=== PATIENT | female | born 1980 | race African-American/Black ===

== ENCOUNTER 2020-02-29 17:19 | Emergency (ER) | payer BC, OTHER ==
[~2020-02-29] VITALS: Ht 167.6 cm; Wt 90.1 kg
[2020-02-29 17:25] VITALS: BP 140/95
[2020-02-29] MEDS ORDERED: IV NORMAL SALINE 1,000ML 1,000 ML IV ONE (17:45)
--- NOTE | 2020-02-29 18:02 | PHYS DOC ---
General Adult EDM: Chief Complaint: HEADACHE HPI: HPI: Patient is a 39 year old female who presents with above hx and complaints of headache, body aches, fever was 100.3, pt sent to ED per employer to " get checked out". Pt. denies any trauma or specific ill contacts. Patient up-to-date with vaccinations. No recent travel. Patient follows at [facility]. Patient does have a sore throat. Patient denies any history of expr ession. Review of Systems: Review of Systems: Constitutional: History of fever or chills Eyes: Denies change in visual acuity HENT: History of sore throat Respiratory: Denies cough or shortness of breath Cardiovascular: Denies chest pain or edema GI: Denies abdominal pain, nausea, vomiting, bloody stools or diarrhea : Denies dysuria Musculoskeletal: Denies back pain or joint pain Integument: Denies rash Neurologic: Denies headache, focal weakness or sensory changes Endocrine: Denies polyuria or polydipsia Lymphatic: Denies swollen glands Psychiatric: Denies depression or anxiety Heart Score: Risk Factors: Risk Factors: DM, Current or recent (<one month) smoker, HTN, HLP, family history of CAD, obesity. Risk Scores: Score 0 - 3: 2.5% MACE over next 6 weeks - Discharge Home Score 4 - 6: 20.3% MACE over next 6 weeks - Admit for Clinical Observation Score 7 - 10: 72.7% MACE over next 6 weeks - Early Invasive Strategies Family History: Family History: Noncontributory Current Medications: Current Meds: Current Medications Medications (Trade) Dose Ordered Sig/[facility] Start Time Stop Time Status Last Admin Dose Admin Sodium Chloride 1,000 ml @ 1,000 mls/hr 1X ONCE 02/29/20 17:45 02/29/20 18:44 UNV Allergies: Allergies: No known drug allergies Physical Exam: PE: Constitutional: Well developed, well nourished, moderate acute distress, non- toxic appearance. [] HENT: Normocephalic, atraumatic, bilateral external ears normal, oropharynx moist, injected pharynx no oral exudates, nose normal. [] Eyes: PERRLA, EOMI, conjunctiva normal, no discharge. [] Neck: Normal range of motion, no tenderness, supple, no stridor. [] Cardiovascular:Heart rate regular rhythm, no murmur [] Lungs & Thorax: Bilateral breath sounds equal at apex on auscultation [] Abdomen: Bowel sounds normal, soft, no tenderness, no masses, no pulsatile masses. [] Skin: Warm, dry, no erythema, no rash. [] Back: No tenderness, no CVA tenderness. [] Extremities: No tenderness, no cyanosis, no clubbing, ROM intact, no edema. [] Neurologic: Alert and oriented X 3, normal motor function, normal sensory function, no focal deficits noted. [] Psychologic: Affect normal, judgement normal, mood normal. [] EKG: EKG: [] Radiology/Procedures: Radiology/Procedures: [] Course & Med Decision Making: Course & Med Decision Making Pertinent Labs and Imaging studies reviewed. (See chart for details) Patient gargle with Listerine 4 times a day. Patient take Tylenol or Ibuprofen for pain. Patient push fluids. Patient take amoxicillin 500 mg 3 times a day. Patient follow-up primary care. Patient return for any concerns. Patient is self isolate. Patient follow-up COVID testing. Patient reviewed ED work-up with primary care. Impression: 1. Fever 2. Strep pharyngitis [] Dragon Disclaimer: Dragcris Disclaimer: This electronic medical record was generated, in whole or in part, using a voice recognition dictation system. Departure Departure: Disposition: 01 HOME/RESIDENCE PRIOR TO ADM Condition: STABLE Referrals: ANGEL VILLAFANA DO (PCP) Scripts Hydrocodone/Ibuprofen (HYDROCODONE-IBUPROFEN 7.5-200 ) 1 Each Tablet 1 TAB PO PRN Q6HRS PRN for PAIN, #30 TAB 0 Refills Prov: ITZEL PATRICIA MD 02/29/20 Amoxicillin (AMOXICILLIN) 500 Mg Capsule 1 CAP PO TID for pharyngitis, #30 CAP Prov: ITZEL PATRICIA MD 02/29/20 Justification of Admission: Justification of Admission: Justification of Admission Dx: N/A Dragon Disclaimer This chart was dictated in whole or in part using Voice Recognition software in a busy, high-work load, and often noisy Emergency Department environment. It may contain unintended and wholly unrecognized errors or omissions. ITZEL PATRICIA MD Feb 29, 2020 18:02
[2020-02-29 18:26] LABS: BASO % 0 % (0-3); EOS % 1 % (0-3); HEMATOCRIT 38.6 % (36.0-47.0); HEMOGLOBIN 12.7 g/dL (12.0-15.5); LYMPH # 0.8 x10^3/uL (1.0-4.8); LYMPH % 12 % (24-48); MEAN CORPUSCULAR HEMOGLOBIN 31 pg (25-35); MEAN CORPUSCULAR HGB CONC 33 g/dL (31-37); MEAN CORPUSCULAR VOLUME 93 fL (79-100); MONO # 0.7 x10^3/uL (0.0-1.1); MONO % 10 % (0-9); NEUT # 5.4 x10^3uL (1.8-7.7); NEUT % 77 % (31-73); PLATELET COUNT 218 x10^3/uL (140-400); RED BLOOD COUNT 4.14 x10^6/uL (3.50-5.40); RED CELL DISTRIBUTION WIDTH 14.4 % (11.5-14.5)
[2020-02-29 18:39] LABS: ALBUMIN 3.8 g/dL (3.4-5.0); ALBUMIN/GLOBULIN RATIO 1.1 (1.0-1.7); CALCIUM 8.6 mg/dL (8.5-10.1); CREATININE 1.1 mg/dL (0.6-1.0); GFR 67.6; POTASSIUM 3.8 mmol/L (3.5-5.1); TOTAL BILIRUBIN 0.8 mg/dL (0.2-1.0); TOTAL PROTEIN 7.4 g/dL (6.4-8.2)
--- NOTE | 2020-02-29 18:52 | RAD ---
Exam: Chest one view INDICATION: Fever, weakness TECHNIQUE: Frontal view of the chest Comparisons: None FINDINGS: The cardiomediastinal silhouette and pulmonary vessels are within normal limits. The lung and pleural spaces are clear. IMPRESSION: No acute cardiopulmonary process. Electronically signed by: Carol Huizar MD (02/29/2020 6:49 PM) [id number]
[2020-02-29] MEDS ORDERED: HYDR-1179 PO (19:18)
[2020-02-29] MEDS ORDERED: AMOX500C PO (19:18)
[2020-02-29] MEDS ORDERED: predniSONE 10 MG TABLET PO ONE (19:25)
[2020-02-29] MEDS ORDERED: AMOXICILLIN 250 MG CAPSULE PO ONE (19:25)
[2020-02-29 20:24] LABS: COLOR,URINE YELLOW
[2020-02-29 20:25] LABS: BILIRUBIN,URINE NEG (NEG); CLARITY,URINE CLEAR; GLUCOSE,URINE NEG (NEG)
[2020-02-29 20:26] LABS: BACTERIA,URINE 0 /HPF (0-FEW); NITRITE,URINE NEG (NEG); SQUAMOUS EPITHELIAL CELL,UR FEW /LPF; UROBILINOGEN,URINE 0.2 mg/dL (0.2 mg/dL); WBC,URINE OCC /HPF (0-4)
--- NOTE | 2020-03-02 15:50 | NUR ---
IP: Notified patient of COVID result.
== END 2020-02-29 19:35 | disposition home or self-care (01) ==
LOC: ER 17:34
DX: J02.0 Streptococcal pharyngitis (principal); B95.0 Streptococcus, group A, as the cause of diseases classified elsewhere; Z20.828 Contact with and (suspected) exposure to other viral communicable diseases
CPT/HCPCS: 36415; 71045; 80053; 81001; 81025; 85025; 87880; 96360; 99284; J7030; J7512; U0003

== ENCOUNTER 2020-10-08 09:41 | Emergency (ER) | payer OTHER ==
[~2020-10-08] VITALS: Ht 198.1 cm; Wt 190.0 kg
[~2020-10-08 09:41] MED LIST: AMOX500C PO; HYDR-1179 PO
[2020-10-08 09:50] VITALS: BP 136/83
[2020-10-08 10:58] LABS: BILIRUBIN,URINE NEG (NEG); CLARITY,URINE HAZY; COLOR,URINE YELLOW; GLUCOSE,URINE NEG (NEG)
[2020-10-08 10:59] LABS: BACTERIA,URINE 0 /HPF (0-FEW); NITRITE,URINE NEG (NEG); RBC,URINE OCC /HPF (0-2); SQUAMOUS EPITHELIAL CELL,UR OCC /LPF; WBC,URINE 0 /HPF (0-4)
--- NOTE | 2020-10-08 11:28 | PHYS DOC ---
Past History Past Medical History: No Pertinent History Past Surgical History: Alcohol Use: None Adult General Chief Complaint Chief Complaint: PAIN ON URINATION [facility] [place] Patient is a 40-year-old female who presents to the emergency room complaining of dysuria, urinary frequency lower pelvic pain that started Thursday night. Patient states that this is happened to her one other time in July. She states both of these occurrences have happened very shortly after having intercourse with a new boyfriend. She is only had intercourse with him twice. She states that he is well and out and she has typically some pain and bleeding after intercourse. Patient states the bleeding has stopped. She does have some white discharge. She denies any smell to her urine. Prior to that she never had similar symptoms. She did use condoms both instances Review of Systems Review of Systems Complete ROS is negative unless otherwise documented in HPI Allergies Allergies Allergies Coded Allergies Type Severity Reaction Last Updated Verified No Known Drug Allergies 02/29/20 No Physical Exam Physical Exam General: Awake, alert, NAD. Well Nourished, well hydrated. Cooperative HEENT: Atraumatic, EOMI, PERRL, airway patent, moist oral mucosa Neck: Supple, trachea midline Respiratory: CTA bilaterally, normal effort, no wheezing/crackles CV: RRR, no murmur, cap refill <2 GI: Soft, nondistended, nontender, no masses MSK: No obvious deformities Skin: Warm, dry, intact Neuro: A&O x3, speech NL, sensory and motor grossly intact, no focal deficits Psych: Normal affect, normal mood, not suicidal or homicidal Current Patient Data Vital Signs Vital Signs Date Time Temp Pulse Resp B/P (MAP) Pulse Ox O2 Delivery O2 Flow Rate FiO2 10/08/20 09:50 98.7 92 136/83 (100) 100 Room Air Lab Results Laboratory Tests Test 10/08/20 09:50 Urine Collection Type Unknown Urine Color Yellow Urine Clarity Hazy Urine pH 7.5 Urine Specific Anton 1.020 Urine Protein Neg (NEG-TRACE) Urine Glucose (UA) Neg mg/dL (NEG) Urine Ketones (Stick) Neg mg/dL (NEG) Urine Blood Trace (NEG) Urine Nitrite Neg (NEG) Urine Bilirubin Neg (NEG) Urine Urobilinogen Dipstick 1.0 mg/dL (0.2 mg/dL) Urine Leukocyte Esterase Neg (NEG) Urine RBC Occ /HPF (0-2) Urine WBC 0 /HPF (0-4) Urine Squamous Epithelial Cells Occ /LPF Urine Bacteria 0 /HPF (0-FEW) EKG EKG [] Radiology/Procedures Radiology/Procedures [] Heart Score C/O Chest Pain: N/A Risk Factors: Risk Factors: DM, Current or recent (<one month) smoker, HTN, HLP, family history of CAD, obesity. Risk Scores: Risk Factors: DM, Current or recent (<one month) smoker, HTN, HLP, family history of CAD, obesity. Course & Med Decision Making Course & Med Decision Making Pertinent Labs and Imaging studies reviewed. (See chart for details) Patient is a 40-year-old female presents to the emergency room complaining of lower pelvic pain, dysuria, vaginal discharge. Patient has no concern for sexually transmitted diseases as she is in condom. Patient did not urinate after sex. UA and wet prep will be done. GC chlamydia from the urine will also be sent though concern for sexually transmitted diseases is low given patient's safe sex practices. UA does show some white blood cells but does not show bact eria. Patient has been taking amoxicillin which may account for this. We will put her on Macrobid for likely UTI. Patient's test results and vitals while in the ED were fully reviewed and discussed with the patient. Patient is stable and at this time does not need admission to the hospital. We have discussed strict return precautions and the importance of following up with their Primary Care Physician. Patient stated understanding and was given an opportunity to ask any questions. Patient is in agreement with plan. Dragon Disclaimer Dragon Disclaimer This electronic medical record was generated, in whole or in part, using a voice recognition dictation system. Departure Departure: Impression: Primary Impression: Dysuria Disposition: DC HOME SELF CARE/HOMELESS Condition: STABLE Referrals: LEA HERNANDEZ DO (PCP) Patient Instructions: Dysuria Scripts Phenazopyridine Hcl (PYRIDIUM) 200 Mg Tablet 1 TAB PO TID for urinary discomfort for 3 Days, #9 TAB 0 Refills Prov: ERIC SOSA MD 10/08/20 Nitrofurantoin Monohyd/M-Cryst (MACROBID 100 MG CAPSULE) 100 Mg Capsule 1 CAP PO BID for UTI for 7 Days, #14 CAP 0 Refills Prov: ERIC SOSA MD 10/08/20 ERIC SOSA MD Oct 08, 2020 11:28
[2020-10-08] MEDS ORDERED: PHEN-318 PO (12:33)
[2020-10-08] MEDS ORDERED: NITR100C62 PO (12:33)
[2020-10-10] MEDS ORDERED: IBUP-571 PO (12:37)
== END 2020-10-09 12:35 | disposition home or self-care (01) ==
LOC: ER 09:41
DX: R30.0 Dysuria (principal); R35.0 Frequency of micturition; R10.2 Pelvic and perineal pain
CPT/HCPCS: 36415; 81001; 87491; 87591; 99283; Q0111

== ENCOUNTER 2020-10-10 09:23 | Emergency (ER) | payer OTHER ==
[~2020-10-10] VITALS: Ht 198.1 cm; Wt 88.0 kg
[~2020-10-10 09:23] MED LIST changes: +NITR100C62 PO; +PHEN-318 PO
[2020-10-10 09:40] VITALS: BP 127/82
[2020-10-10] MEDS ORDERED: IV NORMAL SALINE 1,000ML 1,000 ML IV ONE (10:15)
[2020-10-10] MEDS ORDERED: KETOROLAC 15 MG/ML VIAL. IVP ONE (10:15)
--- NOTE | 2020-10-10 10:17 | PHYS DOC ---
Past History Additional Past Medical Histor: Uterine fibroids Past Surgical History: Smoking: Non-smoker Alcohol Use: None Drug Use: None Social History Has boyfriend, only sexual partner, uses condom General Adult EDM: Chief Complaint: PELVIC PAIN HPI: HPI: Patient is a 40-year-old female dysuria, urinary frequency lower pelvic pain that started Thursday night. She went to the emergency department on Thursday for this issue and was given Macrobid and medicine to manage pain. Patient states that this is happened to her one other time in July. Patient states that she continues to have these symptoms today and she rates the pain as 10 out of 10 in her lower left pelvis that radiates to her groin and lower left back. This is a sharp constant pain. She states both of these occurrences have happened very shortly after having intercourse with a new boyfriend. She does have some white discharge. She denies any smell to her urine. She uses condoms during intercourse and has only had one sexual partner in recent history. Patient denies any fever, chills, nausea, vomiting. Review of Systems: Review of Systems: Constitutional: Denies fever or chills Eyes: Denies redness or eye pain HENT: Denies nasal congestion or sore throat Respiratory: Denies cough or shortness of breath Cardiovascular: Denies chest pain or palpitations GI: Lower left pelvic pain, normal bowel sounds : Dysuria, white discharge Musculoskeletal: Left lower back pain, denies limited range of motion Integument: Denies rash or skin lesions Neurologic: Denies headache, focal weakness or sensory changes Complete systems were reviewed and found to be within normal limits, except as documented in this note. Family History: Family History: No relevant family history Current Medications: Current Meds: Pyridium Macrobid Allergies: Allergies: Allergies Coded Allergies Type Severity Reaction Last Updated Verified No Known Drug Allergies 10/08/20 No Physical Exam: PE: Constitutional: Well developed, well nourished, no acute distress, non-toxic appearance HENT: Normocephalic, atraumatic Eyes: PERRL, EOMI, conjunctiva normal, no discharge Neck: Normal range of motion, no tenderness, supple Lungs & Thorax: No respiratory distress, equal chest rise and fall Abdomen: Left lower pelvic pain, no erythema or bruising Skin: Warm, dry, no erythema, no rash Back: Left lower lumbar pain, no erythema or bruising Extremities: Left groin pain, no erythema or bruising Neurologic: Alert and oriented X 3, normal motor function, normal sensory function, no focal deficits noted Psychologic: Affect normal, judgment normal Current Patient Data: Vital Signs: Vital Signs Date Time Temp Pulse Resp B/P (MAP) Pulse Ox O2 Delivery O2 Flow Rate FiO2 10/10/20 09:40 98.9 16 127/82 (97) EKG: EKG: [] Radiology/Procedures: Radiology/Procedures: [] Heart Score: C/O Chest Pain: N/A Course & Med Decision Making: Course & Med Decision Making 32-year-old female presents to the emergency department with left lower pelvic pain secondary to possible UTI. She was prescribed Macrobid and Pyridium after going to the emergency department on Thursday for the same issue and she continues to have this pain today. Pelvic ultrasound ordered and Toradol given to manage pain. Dragon Disclaimer: Dragon Disclaimer: This electronic medical record was generated, in whole or in part, using a voice recognition dictation system. Departure Departure: Impression: Primary Impression: Pelvic pain Additional Impression: Uterine fibroid Qualified Codes: D25.9 - Leiomyoma of uterus, unspecified Disposition: DC HOME SELF CARE/HOMELESS Condition: STABLE Referrals: LEA HERNANDEZ DO (PCP) Patient Instructions: Pelvic Pain, Female, [id number], Uterine Fibroid, [id number] Additional Instructions: Please follow with [facility]GER regarding your fibroids. Provide radiological reports provided to you in the Emergency Department. (ie. ultrasound and CT imaging reports). May also take Tylenol between doses of the ibuprofen for pain or discomfort. Scripts Ibuprofen (Ibu) 600 Mg Tablet 1 TAB PO Q8HRS PRN for PAIN, #30 TAB 0 Refills Prov: ANGEL LUIS ROJAS DO 10/10/20 ANGEL LUIS ROJAS DO Oct 10, 2020 10:17
[2020-10-10 10:27] LABS: BASO % 1 % (0-3); EOS # 0.2 x10^3/uL (0.0-0.7); EOS % 4 % (0-3); HEMATOCRIT 36.9 % (36.0-47.0); HEMOGLOBIN 12.3 g/dL (12.0-15.5); LYMPH # 1.6 x10^3/uL (1.0-4.8); LYMPH % 29 % (24-48); MEAN CORPUSCULAR HEMOGLOBIN 31 pg (25-35); MEAN CORPUSCULAR HGB CONC 33 g/dL (31-37); MEAN CORPUSCULAR VOLUME 93 fL (79-100); MONO # 0.4 x10^3/uL (0.0-1.1); MONO % 6 % (0-9); NEUT # 3.4 x10^3uL (1.8-7.7); NEUT % 60 % (31-73); PLATELET COUNT 235 x10^3/uL (140-400); RED BLOOD COUNT 3.99 x10^6/uL (3.50-5.40); WHITE BLOOD COUNT 5.6 x10^3/uL (4.0-11.0)
[2020-10-10 10:37] LABS: CALCIUM 8.9 mg/dL (8.5-10.1); GFR 75.1
[2020-10-10] MEDS ORDERED: CONTRAST GIVEN. MC PRN (11:00)
[2020-10-10] MEDS ORDERED: IOHEXOL 300 MG/ML 75 ML VIAL. IV ONE (11:00)
--- NOTE | 2020-10-10 11:06 | RAD ---
EXAMINATION: US PELVIS COMPLETE, 10/10/2020 10:25 AM CLINICAL INDICATION: Pelvic pain TECHNIQUE: Grayscale, color and spectral Doppler ultrasound images of the pelvis via transabdominal a pproach only. The patient declined transvaginal exam. COMPARISON: None. FINDINGS: The uterus measures approximately 15 x 11 x 8 cm. There is a 5 x 7 x 6 cm shadowing calcified mass in the uterus, limiting evaluation of the uterus. There may also be several subserosal uterine masses v ersus adnexal masses. The exam is limited due to the shadowing mass in the uterus and transabdominal approach. The ovaries are obscured. IMPRESSION: At least one 6 cm shadowing calcified mass in the uterus, possibly a calcified fibroid. T here may be additional subserosal uterine masses versus adnexal masses. The exam is limited due to sh adowing from the calcified mass and transabdominal only approach. Recommend CT or MRI to further eval uate as indicated. Electronically signed by: Nidia Avalos MD (10/10/2020 11:03 AM) [id number]
--- NOTE | 2020-10-10 11:34 | RAD ---
PQRS Compliance Statement: One or more of the following individualized dose reduction techniques were utilized for this examinat ion: 1. Automated exposure control 2. Adjustment of the mA and/or kV according to patient size 3. Use of iterative reconstruction technique CT ABDOMEN+PELVIS W Clinical Indication: Reason: LLQ/pelvic pain, fibroids noted on US which were not fully visual Comparison: Pelvic ultrasound, same day. Technique: Helical CT imaging of the abdomen and pelvis is performed after 75 cc of Omnipaque 300 IV contrast. Oral contrast not administered. Findings: There is minimal atelectasis in the posterior lower lobes bilaterally. The cardiac size is normal. The liver, gallbladder, spleen, pancreas, adrenal glands, and abdominal aorta are normal. Kidneys enh ance symmetrically, no hydronephrosis. There is no obvious abnormality the stomach. No dilated small bowel is identified. There is scattered stool in the colon. The appendix is normal. There are a few colonic diverticula. No colon wall thick ening is seen. Enlarged myomatous uterus measures about 18 cm craniocaudal. Measurements are AP, transverse, and scrap baler niocaudal, respectively. There is a rim calcified probable subserosal fibroid on the right measuring approximately 7.1 x 7.9 x 6.4 cm. There is a probable subserosal fibroid with partial rim calcificati on near the fundus on the left measuring 7.3 cm x 6.7 cm x 5.8 cm. There is a noncalcified subserosal fibroid posteriorly near the fundus measuring 2.2 cm AP. There is a partial rim calcified partially exophytic subserosal fibroid of the posterior uterine body measuring up to 3.7 cm. There is a noncalc ified probable intramural/subserosal fibroid in the lower uterus on the left measuring 5.9 x 6.2 x 5. 7 cm. There is a probable exophytic or pedunculated fibroid on the right adjacent to the uterine body measuring up to 2.9 cm. There are probably additional tiny fibroids that are not mentioned. The ovaries are not well evaluated by CT but appear to be symmetric in size. No definite adnexal mass is seen. The urinary bladder is normal. There is mild pelvic free fluid. No acute bone abnormality. IMPRESSION: 1. Enlarged myomatous uterus as detailed above. Suggest gynecologic consultation. 2. The ovaries appear symmetric in size. No definite adnexal mass is identified. 3. Mild pelvic free fluid may be physiologic. Electronically signed by: Matt Merlos MD (10/10/2020 11:32 AM) [id number]
[2020-10-10] MEDS ORDERED: IBUP-571 PO (12:37)
[2020-10-10 13:00] LABS: ALBUMIN 3.4 g/dL (3.4-5.0); ALBUMIN/GLOBULIN RATIO 0.9 (1.0-1.7); MAGNESIUM 1.9 mg/dL (1.8-2.4); TOTAL BILIRUBIN 0.3 mg/dL (0.2-1.0); TOTAL PROTEIN 7.1 g/dL (6.4-8.2)
== END 2020-10-10 13:10 | disposition home or self-care (01) ==
LOC: ER 09:23
DX: D25.9 Leiomyoma of uterus, unspecified (principal); R10.2 Pelvic and perineal pain; M54.5 Low back pain; Z98.890 Other specified postprocedural states
CPT/HCPCS: 36415; 74177; 76856; 80053; 83735; 85025; 96361; 96374; 99285; J1885; J7030; Q9967